=== PATIENT | male | born 2000 | race Caucasian/White ===

== ENCOUNTER 2019-05-20 19:17 | Emergency (ER) | payer OTHER, SELFPAY ==
[2019-05-20 19:22] VITALS: BP 105/75; PULSE 104; RESP 18; TEMP 37; O2SAT 98
--- NOTE | 2019-05-20 19:31 | ED.GENADUL_ITS ---
Discharge Plan Disposition Patient Disposition: HOME Condition: Stable Discharge Details Chief Complaint: Orthopedic Clinical Impression: Finger laceration, Contusion of finger Primary Care Provider: Elif Bashir ED Provider: Kiara Bravo Home Meds and New Rx's Prescriptions: No Action No Known Home Meds RF: 0 Discharge Instructions Instructions: Contusion in Adults (ED), Finger Laceration (ED) Additional Instructions: Keep wound clean and dry. Apply topical antibiotic ointment to the wound twice daily. Follow-up with your primary care doctor next week for reevaluation as needed. Return to the emergency department if you develop any worsening or concerning symptoms of fever, increased pain, redness or swelling. Discharge Data Discharge Physician: Kiara Bravo Medical Decision Making 18-year-old male presents with right second finger injury after crushed in a mckeon at work yesterday. Unknown tetanus status. Patient states the instrument at work was slightly dirty. Able to determine tetanus last up-to-date 2011. As wound sustained with dirty instrument, will give a Boostrix. There are superficial wounds well approximated without bleeding dorsal finger proximal to nailbed but no nail injury. No bony injury and neurovascularly intact. Will obtain a finger x-ray. Finger x-ray negative. Wound cleaned and covered with topical antibiotic ointment and bandage. Patient advised to follow-up with his primary care doctor return here with any concerns Medical Records Medical records reviewed: Yes I reviewed the patient's medical records. Imaging Data Radiologic Study: Radiologist's impression: XR Right Finger(s) EXAM DATE/TIME: 05/20/2019 7:30 PM CLINICAL HISTORY: 18 years old, male; Pain; Finger(s); Right TECHNIQUE: Imaging protocol: XR Right fingers. Views: Minimum 2 views. COMPARISON: No relevant prior studies available. FINDINGS: Bones/joints: Normal. Soft tissues: Normal. IMPRESSION: No acute findings. HPI General Mode of arrival: ambulatory . Date/Time Provider Initiated Documentation: 05/20/19 19:26 . Limitations to Documentation: no limitations . Information obtained by: patient . HPI Narrative: Patient is a 18-year-old male who presents with a right second finger injury after caught in a mckeon at work yesterday. Patient states the instrument was slightly dirty. Patient states the wound bled which he then cleaned and covered with a Band-Aid. He states he is unsure of his tetanus status. He states he mainly came to the emergency department for evaluation and possible tetanus. Related Data Home Medications Medication Instructions Recorded Confirmed Unknown [No Known Home Meds] 05/20/19 05/20/19 Allergies Allergy/AdvReac Type Severity Reaction Status Date / Time No Known Allergies Allergy Unverified 05/20/19 19:24 General Stated Complaint: Orthopedic SANDIP: 4 Review of Systems Review of Systems All systems reviewed & are unremarkable except as noted in HPI and below PFSH Medical History No significant past medical history (Acute) Surgical History No significant past surgical history (Acute) Social History Smoking/Tobacco Use Status: Never Alcohol Intake: never Drug use: Never Substance use type: does not use Do you feel safe at home: Yes Do you feel safe in your relationship?: Yes Exam Const General: cooperative, healthy appearing and no acute distress HENMT Head: normal to inspection Mouth: oral mucosae normal Eyes General: appearance normal, both eyes and all related structures Neck Neck: normal visual inspection Resp Effort & Inspection: normal respiratory effort and able to speak in complete sentences Cardio Rate: regular rate Skin General skin exam: no rashes or lesions noted Neuro General: alert, awake and oriented x3 Motor: muscle tone normal throughout Other: Motor/sensory grossly intact to right second finger. Extrem Other: Right second finger: Superficial lacerations well approximated noted on dorsal aspect of distal finger just proximal to the nailbed. No injury noted to nail. No open wounds, bleeding or discharge. No edema, ecchymosis, deformity. Psych Appearance: grossly normal Affect: normal affect Course Vital Signs Temperature 98.6 F 05/20/19 19:22 Pulse 104 H 05/20/19 19:22 Respiratory Rate 18 05/20/19 19:22 Blood Pressure 105/75 05/20/19 19:22 Pulse Oximetry 98 05/20/19 19:22 Temperature 98.6 F 05/20/19 19:22 Temperature Source Oral 05/20/19 19:22 Pulse 104 H 05/20/19 19:22 Respiratory Rate 18 07/26/19 19:22 Respiratory Effort Non-Labored 05/20/19 19:23 Blood Pressure 105/75 05/20/19 19:22 Blood Pressure Position Sitting 05/20/19 19:22 Pulse Oximetry 98 05/20/19 19:22 Oxygen Delivery Method Room Air 05/20/19 19:22 Oxygen Flow Rate 0 05/20/19 19:22 Pain Level 1 05/20/19 19:26
--- NOTE | 2019-05-20 19:44 | DI.RAD_ITS ---
SYMPTOM/DIAGNOSIS: S/P CRUSH INJURY DISTAL PHALANX RIGHT INDEX FINGERS : 3 VIEWS. No bone or joint abnormality is identified.
--- NOTE | 2019-05-20 20:23 | DI.VRAD_ITS ---
EXAM: XR Right Finger(s) EXAM DATE/TIME: 05/20/2019 7:30 PM CLINICAL HISTORY: 18 years old, male; Pain; Finger(s); Right TECHNIQUE: Imaging protocol: XR Right fingers. Views: Minimum 2 views. COMPARISON: No relevant prior studies available. FINDINGS: Bones/joints: Normal. Soft tissues: Normal. IMPRESSION: No acute findings. Dictated and Authenticated by: Olvin Delarosa MD. Ordering:MILLY Craig MD
== END 2019-05-20 20:34 | disposition home or self-care (01) ==
PROVIDERS: Emergency Provider Physician Assistant; PCP Pediatrics
DX: S61.210A Laceration without foreign body of right index finger without damage to nail, initial encounter (principal); W23.0XXA Caught, crushed, jammed, or pinched between moving objects, initial encounter; Y99.0 Civilian activity done for income or pay
CPT/HCPCS: 90471; 99284; 73140; 99283

== ENCOUNTER 2021-08-21 01:25 | Emergency (ER) | payer OTHER, SELFPAY ==
[2021-08-21 01:29] VITALS: BP 131/72; PULSE 96; RESP 18; TEMP 36.5; O2SAT 98
--- NOTE | 2021-08-21 01:49 | ED.GENADUL_ITS ---
Discharge Plan Disposition Patient Disposition: HOME Condition: Improving Discharge Details Chief Complaint: Laceration Clinical Impression: Laceration of forearm, left Primary Care Provider: RitaLocal ED Provider: Domenico Trinidad Home Meds and New Rx's Prescriptions: No Action No Known Home Meds RF: 0 Discharge Instructions Instructions: Laceration (ED) Additional Instructions: Leave dressing in place for 72 hours, then may remove and replace with bandage. Return in 7 days time for removal of sutures. Return for any acute concerns. Keep wound clean and dry until sutures are removed. Medical Decision Making 20-year-old male works at [employer] where he cut his left distal forearm with a packing knife this evening. No motor weakness, no numbness or tingling. Tetanus is up-to-date. Patient was anesthetized, irrigated, examined in a bloodless field with no evidence of significant deep tissue injury. Was repaired with five 4-0 nylon sutures. Wound was dressed the patient instructed as to home care. He is stable for discharge. HPI General Mode of arrival: ambulatory . Date/Time Provider Initiated Documentation: 08/21/21 01:49 . Limitations to Documentation: no limitations . Information obtained by: patient . History of Present Illness 20 year old M presents to the emergency department with the chief complaint of Left forearm laceration, and is localized to the left and upper extremity. Patient reports no radiation. Patient started experiencing this minute(s) and it has been constant. No relieving factors improve symptom(s), No exacerbating factors reported . Patient notes no other symptoms.. Patient did receive the following treatments prior to arrival, none Related Data Home Medications Medication Instructions Recorded Confirmed Unknown [No Known Home Meds] 05/20/19 05/20/19 Allergies Allergy/AdvReac Type Severity Reaction Status Date / Time No Known Allergies Allergy Unverified 05/20/19 19:24 General Stated Complaint: Laceration SANDIP: 4 Review of Systems Narrative: Tetanus up-to-date. No numbness tingling or weakness. 6 systems reviewed and otherwise negative [facility] Medical History (Updated 08/21/21 @ 01:52 by Domenico Trinidad MD) No significant past medical history Surgical History No significant past surgical history Social History Smoking/Tobacco Use Status: Never Smoking risk assessment performed?: Yes Alcohol Intake: never Drug use: Never Substance use type: does not use Do you feel safe at home: Yes Do you feel safe in your relationship?: Yes Exam Narrative Exam Narrative: GEN: awake, alert, oriented 3. Pleasant, well groomed, interactive. HEAD: Normocephalic, atraumatic ENT: Mucous membranes moist, oropharynx unremarkable, External ear exam unremarkable EYES: PERRL, EOMI EXT: Full ROM, no edema, left distal forearm radial aspect with 2 and half centimeter linear laceration through the fold of dermis. Normal distal motor, sensory function. 2+ radial pulse bilaterally. Neuro: Grossly normal neurologic exam, conversant, interactive. Psych: Speech fluent, thoughts congruent, affect normal Course Vital Signs Vital signs: Vital Signs Temperature 36.5 C 08/21/21 01:29 Pulse 96 H 08/21/21 01:29 Respiratory Rate 18 08/21/21 01:29 Blood Pressure 131/72 08/21/21 01:29 Pulse Oximetry 98 08/21/21 01:29 Temperature 36.5 C 08/21/21 01:29 Temperature Source Temporal Artery Scan 08/21/21 01:29 Pulse 96 H 08/21/21 01:29 Respiratory Rate 18 08/21/21 01:29 Respiratory Effort Non-Labored 08/21/21 01:31 Blood Pressure 131/72 08/21/21 01:29 Blood Pressure Position Supine 08/21/21 01:29 Pulse Oximetry 98 08/21/21 01:29 Oxygen Delivery Method Room Air 08/21/21 01:29 Oxygen Flow Rate 0 08/21/21 01:29 Pain Level 9 08/21/21 01:42 Procedures Laceration Laceration 1: Site: upper extremity Side (If applicable): left Size (cm): 2.5 Description: clean Depth: simple, single layer Local Anesthetic: Lidocaine 1% Amount of anesthesia used (mL): 2 Pre-repair: wound explored Skin layer closed with: nylon Size (cm): 4-0 Number of sutures: 5 Technique: simple, interrupted
== END 2021-08-21 01:59 | disposition home or self-care (01) ==
PROVIDERS: Emergency Provider Emergency Medicine
DX: S51.812A Laceration without foreign body of left forearm, initial encounter (principal); W26.0XXA Contact with knife, initial encounter; Y99.0 Civilian activity done for income or pay
CPT/HCPCS: 12001

== ENCOUNTER 2022-04-19 12:00 | Emergency (ER) | payer OTHER, SELFPAY ==
--- NOTE | 2022-04-19 12:14 | ED.GENADUL_ITS ---
Discharge Plan Disposition Patient Disposition: HOME Condition: Stable Discharge Details Clinical Impression: Tick bite Primary Care Provider: Rita,Local ED Provider: Kiara Bravo Home Meds and New Rx's Prescriptions: New doxycycline hyclate 100 mg tablet 100 mg PO BID 10 Days Qty: 20 0RF Discharge Instructions Instructions: Tick Bite (ED) Additional Instructions: Keep wound clean and dry. Apply warm compresses to the affected area several times daily for 20 minutes at a time. Try to keep the leg elevated as much as possible. A prescription for antibiotics has been sent electronically to your pharmacy to take as directed until finished. Follow-up with your primary care doctor in 1 week. Return to the emergency department with any worsening or new concerning sy mptoms. Discharge Data Discharge Date/Time-TO BE ENTERED AT DEPARTURE: 04/19/22 12:44 Discharge Physician: Kiara Bravo Medical Decision Making 21-year-old male presents with tick bite noted on his left foot 4 days ago now with redness, swelling and itching around the area since last night. There is a 2 x 2 millimeter pustule at the site of tick bite with an approximate 6 x 6 cm area of erythema. There is no obvious bull's-eye rash noted. Do not see indication for puncture of the pustule and is recommended to apply warm compresses. Patient is concerned about possible Lyme disease and feels that there possibly is a bull's-eye rash. Will cover with doxycycline which was sent electronically to his pharmacy. He is advised on the importance of proper wound care, with recommendations for leg elevation and keeping area clean and dry. Advised to follow up with the primary care doctor for re-evaluation. Usual and customary return precautions given prior to discharge. Medical Records Medical records reviewed: Yes I reviewed the patient's medical records. HPI General Mode of arrival: ambulatory . Date/Time Provider Initiated Documentation: 04/19/22 12:14 . Limitations to Documentation: no limitations . Information obtained by: patient . HPI Narrative: Patient is a 21-year-old male presents with concern for redness, swelling and itchiness at site of tick bite. Patient states he went to bed Thursday night without any present and then 6 hours later awoke and noted a tick to his foot. He states it was mildly engorged and may have been a deer tick. He states last night he noticed some redness, swelling and itching around the area. He denies any fever. Related Data Home Medications Medication Instructions Recorded Confirmed doxycycline hyclate 100 mg tablet 100 mg PO BID 10 days #20 tabs 04/19/22 Previous Rx's Medication Instructions Recorded doxycycline hyclate 100 mg tablet 100 mg PO BID 10 days #20 tabs 04/19/22 Allergies Allergy/AdvReac Type Severity Reaction Status Date / Time No Known Allergies Allergy Unverified 04/19/22 12:26 General Stated Complaint: RashLesion SANDIP: 4 Review of Systems All systems reviewed & are unremarkable except as noted in HPI and below Constitutional Constitutional: Reports as per HPI, Denies chills and Denies fever(s) Eyes Eyes: Denies blurry vision ENT Ears, Nose, Mouth, and Throat: Denies dizziness, Denies sore throat and Denies throat swelling Cardiovascular Cardiovascular: Denies chest pain and Denies dyspnea Respiratory Respiratory: Denies cough and Denies dyspnea Gastrointestinal Gastrointestinal: Denies abdominal pain, Denies diarrhea and Denies vomiting Genitourinary Genitourinary: Denies hematuria and Denies dysuria Musculoskeletal Musculoskeletal: Denies back pain and Denies numbness Integumentary/Breasts Skin/Breast: Reports lesions and Denies rash Neurologic Neurologic: Denies dizziness, Denies localized weakness and Denies numbness Allergic/Immunologic Allergic/Immunologic: Denies throat swelling PFSH All Active Problems (Updated 04/19/22 @ 12:34 by Kiara Bravo DO) Laceration of forearm, left (Acute) Tick bite (Acute) Medical History (Updated 04/19/22 @ 12:34 by Kiara Bravo DO) No significant past medical history Surgical History No significant past surgical history Social History Smoking risk assessment performed?: No Alcohol Intake: never Drug use: Never Substance use type: does not use Do you feel safe at home: Yes Do you feel safe in your relationship?: Yes Exam Const General: cooperative, healthy appearing and no acute distress HENMT Head: normal to inspection Mouth: oral mucosae normal Eyes General: appearance normal, both eyes and all related structures Neck Neck: normal visual inspection Resp Effort & Inspection: normal respiratory effort and able to speak in complete sentences Cardio Rate: regular rate Skin General skin exam: no rashes or lesions noted Neuro General: patient alert, patient awake and patient oriented x3 Motor: muscle tone normal throughout Extrem Ankle/foot/toe images: 1. 2x2mm yellow pustule 2. Erythema Psych Appearance: grossly normal Affect: normal affect
[2022-04-19 12:23] VITALS: BP 95/62; PULSE 79; RESP 16; TEMP 36.8; O2SAT 98
== END 2022-04-19 12:44 | disposition home or self-care (01) ==
PROVIDERS: Emergency Provider Physician Assistant
DX: S90.862A Insect bite (nonvenomous), left foot, initial encounter (principal); W57.XXXA Bitten or stung by nonvenomous insect and other nonvenomous arthropods, initial encounter
CPT/HCPCS: 99283; 99284

== ENCOUNTER 2024-07-29 09:56 | Outpatient (CLI) | payer OTHER, SELFPAY ==
[2024-07-29 10:18] LABS: Abs Immature Grans 0.01 10^3/uL (0.0-0.06); Absolute Basophil Count 0.01 10^3/uL (0.0-0.2); Absolute Eosinophil Count 0.03 10^3/uL (0.0-0.7); Absolute Lymphocyte Count 1.64 10^3/uL (1.2-3.4); Absolute Monocyte Count 0.44 10^3/uL (0.1-0.8); Absolute Neutrophil Count 1.05 10^3/uL (1.2-6.7); Basophils % 0.3 %; Eosinophils % 0.9 %; HCT 43.1 % (40.0-50.0); HGB 14.3 g/dL (13.5-17.5); Immature Grans % 0.3 %; Lymphocytes % 51.6 %; MCH 27.9 pg (27.0-33.0); MCHC 33.2 % (32.0-36.0); MCV 84 fL (80-95); MPV 8.3 fL (8.0-11.0); Monocytes % 13.8 %; Neutrophils % 33.1 %; Platelet Count 218 10^3/uL (130-400); RBC 5.13 10^6/uL (4.36-5.78); RDW 12.6 % (11.8-14.1); RDW-SD 38.8 fL; WBC 3.18 10^3/uL (4.4-10.8)
[2024-07-29 10:42] LABS: ALT 14 U/L (16-63); AST 13 U/L (15-37); Albumin 4.2 g/dL (3.4-5.0); Alkaline Phosphatase 69 U/L (46-116); Anion Gap 6.8 mmol/L (3-11); BUN 9 mg/dL (7-18); Bilirubin, Total 0.45 mg/dL (0.2-1.0); CO2 30.2 mmol/L (21.0-32.0); CREATININE 0.9 mg/dL (0.70-1.30); Calcium 9.1 mg/dL (8.5-10.1); Chloride 103 mmol/L (98-107); Estimated GFR 122.31 (mL/min/1.73m2); Glucose 123 mg/dL (74-106); Potassium 4.2 mmol/L (3.5-5.1); Sodium 140 mmol/L (136-145); Total Protein 7.9 g/dL (6.4-8.2)
== END 2024-07-29 09:57 | disposition home or self-care (01) ==
LOC: LBO 09:56
PROVIDERS: PCP Nurse Practitioner Family; Visit Provider Nurse Practitioner Family
DX: R50.9 Fever, unspecified (principal)
CPT/HCPCS: 36415; 80053; 85025

== ENCOUNTER 2024-08-16 02:18 | Outpatient (CLI) | payer OTHER, SELFPAY ==
--- NOTE | 2024-08-16 09:45 | W.NUTRFU ---
Date of service: 08/16/24 Time of Service: 09:00 Nutrition Note NOTE: Ray comes in for help with weight mgt in terms of wanting to gain weight back but has been struggling. States his usual body weight has been 115-120lbs since before high school. He was 116lbs on 07/19/24, which at 69 results in a BMI of 16.6. He works 3pm-11pm finds it difficult to plan meals. Takes MVI and vitamin D3 at home (hx of vitamin D deficiency) Will start eating around noon and tries to include good portion of starch - pancakes/waffles. Drinks water often, drinks some milk at work usually and some gatorade as well. uses protein bars in pinch. 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 We discussed trying to be proactive - can use cooler at work and use foods like hard cooked eggs, pre-made protein drinks or mix whey protein in water in a pinch. We reviewed recommended intakes for certain macros and daily kcals - suggested aiming for kcals consistently and a minimum of 150g protein daily - reviewed sources and tips for protein on the go - suggested nuts and seeds often as they are nutrient dense and high in kcals. shared some sample menus pointed to meal frequency of aiming for 5-6 eating times per day. Gave my contact info should he have questions or need/desire for further follow up Time Spent in Nutritional Counseling and Treatment: 25 minutes
== END 2024-08-16 02:19 | disposition home or self-care (01) ==
LOC: DS 02:18
PROVIDERS: PCP Nurse Practitioner Family; Visit Provider Dietitian, Registered
DX: Z71.3 Dietary counseling and surveillance (principal)
CPT/HCPCS: 00123; 97802